=== PATIENT | female | born 1965 | race Caucasian/White ===

== ENCOUNTER → 2023-10-08 10:57 | Outpatient (REF) | payer OTHER, SELFPAY | LOC: PAVMRI 10:57 | PROVIDERS: ATTENDING PHYSICIAN Nurse Practitioner Adult Health | DX: R29.898 Other symptoms and signs involving the musculoskeletal system (principal); R68.89 Other general symptoms and signs; M62.81 Muscle weakness (generalized) | CPT/HCPCS: 70553; A9575 ==

== ENCOUNTER → 2024-03-01 10:16 | Outpatient (REF) | payer BC, SELFPAY | LOC: WDC 10:16 | PROVIDERS: ATTENDING PHYSICIAN Nurse Practitioner Adult Health | DX: N64.4 Mastodynia (principal) | CPT/HCPCS: 76642; 77062; 77066 ==

== ENCOUNTER → 2024-04-18 12:50 | Outpatient (REF) | payer BC, SELFPAY | LOC: WDC 12:50 | PROVIDERS: ATTENDING PHYSICIAN Surgery; FAMILY PHYSICIAN Nurse Practitioner Adult Health | DX: R92.8 Other abnormal and inconclusive findings on diagnostic imaging of breast (principal) | CPT/HCPCS: 76642 ==